=== PATIENT | male | born 2005 | race Caucasian/White ===

== ENCOUNTER 2024-03-09 23:33 | Emergency (ER) | payer OTHER, SELFPAY ==
[2024-03-09 23:35] VITALS: BP 110/83
[2024-03-09 23:50] LABS: % Basophils 0.4 % (0-2); % Eosinophils 0.2 % (0-6); % Immature Granulocytes 0.3 % (0-0.5); % Lymphocytes 12.3 % (20.5-51.1); % Monocytes 5.9 % (1.7-9.3); % Neutrophils 80.9 % (42.2-75.2); Absolute Basophils 0.1 10^3/uL (0-0.2); Absolute Immature Granulocytes 0.1 10^3/uL (0-0.05); Absolute Lymphocytes 1.9 10^3/uL (1.2-3.4); Absolute Monocytes 0.9 10^3/uL (0.1-0.6); Absolute Neutrophils 12.4 10^3/uL (1.4-6.5); Hematocrit 39.5 % (39.0-52.0); Mean Corp Hgb Conc. 35.4 g/dL (33.0-37.0); Mean Corpuscular Hgb 29.1 pg (27.0-31.0); Mean Corpuscular Volume 82.1 fL (80.0-94.0); Mean Platelet Volume 10.1 fL (7.4-10.4); Nucleated Red Blood Cells % 0 % (-); Platelet Count 242 10^3/uL (130-400); Red Blood Cell Count 4.81 10^6/uL (4.70-6.10); Red Cell Dist. Width 12.5 % (11.5-14.5); White Blood Cell Count 15.4 10^3/uL (4.8-10.8)
[2024-03-10] VITALS: BP 104/57
[2024-03-10 00:11] LABS: AST (SGOT) 29 U/L (17-59); Albumin 4.7 g/dl (3.5-5.0); Alkaline Phosphatase 58 U/L (38-126); Blood Urea Nitrogen 12 mg/dl (9-20); Calcium 9.4 mg/dl (8.4-10.2); Carbon Dioxide 19 mmol/L (22-30); Chloride 106 mmol/L (98-107); Glucose 120 mg/dl (70-99); Potassium 4.3 mmol/L (3.5-5.1); Sodium 141 mmol/L (135-145); Total Bilirubin 0.9 mg/dl (0.2-1.3); Total Protein 6.9 g/dl (6.3-8.2); eGFR > 60.00
[2024-03-10 00:27] LABS: ALT (SGPT) < 30 U/L (0-50)
--- NOTE | 2024-03-10 01:36 | ED.GENMED ---
History of Present Illness
<SID Abdullahi - Last Filed: 03/10/24 04:47>
General
Chief Complaint: Seizure
Source: patient and family (pt's grandmother )
Exam Limitations: none
Time Seen by Provider: 03/10/24 01:36
Nursing documentation reviewed up to this point in time: agreed with
History of Present Illness
History of Present Illness:
18 year old male presents for evaluation of two generalized tonic clonic seizures. 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 Pt was transported to [facility]
for evaluation, head CT and lab work were normal. Pt was discharged home, and experienced a second seizure at approximately 2230 on 03/09 per grandmother. Pt endorses associated nausea accompanying his seizures, and was given Zofran en route to the
ED which relieved his symptoms. Also currently endorses mild DALY. Pt has a history of generalized seizures and has been followed by [facility] annually since 2020. Grandmother states that pt experiences 3-4 generalized seizures
annually, most recent seizure prior to 03/09 was in December of 2023. 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 Pt has been taking Lamictal 100 mg BID since 2020. Pt took his morning dose on 03/09 but has not taken his
evening dose following his second seizure at 2230 on 03/09. Pt denies CP, SOB, vision changes, fever, chills, incontinence, and dysarthria.
Review of Systems
<SID Abdullahi - Last Filed: 03/10/24 04:47>
Review of Systems
Allergies reviewed?: Yes
Constitutional: Reports no symptoms
EENT: Reports no symptoms
Respiratory: Reports no symptoms
Cardiac: Reports no symptoms
ABD/GI: Reports no symptoms (no current nausea )
: Reports no symptoms
Musculoskeletal: Reports no symptoms
Skin: Reports no symptoms
Neurological: Reports headache (mild)
Endocrine: Reports no symptoms
Hematologic/Lymphatic: Reports no symptoms
Psychiatric: Reports no symptoms
Phy Exam
<SID Abdullahi - Last Filed: 03/10/24 04:47>
General Physical Exam
General Presentation: well appearing
General age: appears stated age
General Skin: warm
General Habitus: normal
General Mental: alert
General Hydration: appears well hydrated
Eye Exam
Eye Exam: PERRL and EOMI
Cardiovascular Exam
Cardiovascular Exam: regular rate/rhythm and no murmur
Pulmonary Exam
Pulmonary Exam: lungs clear and no respiratory distress
Neurological Exam
Neurological Exam: alert and oriented x3
Course
<SID Abdullahi - Last Filed: 03/10/24 04:47>
Orders/Labs/Results
Orders:
Orders
03/09/24 23:41
CMP [Comprehensive Metabolic Panel] Urgent
Complete Blood Count/With Diff Urgent
03/10/24 01:58
Add On- LAB Urgent
Tests Added?: Lamictal level
Lamotrigine [Lamictal] 100 mg PO NOW STA
03/10/24 02:18
Lamotrigine (Lamictal) [S] Routine
Abnormal Lab Results
03/09/24
23:41
WBC 15.4 H 10^3/uL
(4.8-10.8)
Abs Immat Gran (auto) 0.1 H 10^3/uL
(0-0.05)
Absolute Neuts (auto) 12.4 H 10^3/uL
(1.4-6.5)
Absolute Monos (auto) 0.9 H 10^3/uL
(0.1-0.6)
Neutrophils % 80.9 H %
(42.2-75.2)
Lymphocytes % 12.3 L %
(20.5-51.1)
Carbon Dioxide 19 L mmol/L
(22-30)
Glucose 120 H mg/dl
(70-99)
03/09/24 23:41
03/09/24 23:41
Vital Signs
Initial and Last Documented VS:
Initial Vital Signs
Temp Pulse Resp BP Pulse Ox
98.1 F 101 19 110/83 96
03/09/24 23:35 03/09/24 23:35 03/09/24 23:35 03/09/24 23:35 03/09/24 23:35
Last Documented Vital Signs
Temp Pulse Resp BP Pulse Ox
98.1 F 55 19 104/57 100
03/09/24 23:35 03/10/24 04:45 03/09/24 23:35 03/10/24 00:00 03/10/24 02:15
<Heather Brock, DO - Last Filed: 03/10/24 06:08>
Orders/Labs/Results
Orders:
Orders
03/09/24 23:41
CMP [Comprehensive Metabolic Panel] Urgent
Complete Blood Count/With Diff Urgent
03/10/24 01:58
Add On- LAB Urgent
Tests Added?: Lamictal level
Lamotrigine [Lamictal] 100 mg PO NOW STA
03/10/24 02:18
Lamotrigine (Lamictal) [S] Routine
Abnormal Lab Results
03/09/24
23:41
WBC 15.4 H 10^3/uL
(4.8-10.8)
Abs Immat Gran (auto) 0.1 H 10^3/uL
(0-0.05)
Absolute Neuts (auto) 12.4 H 10^3/uL
(1.4-6.5)
Absolute Monos (auto) 0.9 H 10^3/uL
(0.1-0.6)
Neutrophils % 80.9 H %
(42.2-75.2)
Lymphocytes % 12.3 L %
(20.5-51.1)
Carbon Dioxide 19 L mmol/L
(22-30)
Glucose 120 H mg/dl
(70-99)
03/09/24 23:41
03/09/24 23:41
Vital Signs
Initial and Last Documented VS:
Initial Vital Signs
Temp Pulse Resp BP Pulse Ox
98.1 F 101 19 110/83 96
03/09/24 23:35 03/09/24 23:35 03/09/24 23:35 03/09/24 23:35 03/09/24 23:35
Last Documented Vital Signs
Temp Pulse Resp BP Pulse Ox
98.1 F 55 19 104/57 100
03/09/24 23:35 03/10/24 04:45 03/09/24 23:35 03/10/24 00:00 03/10/24 02:15
<SID Abdullahi - Last Filed: 03/10/24 04:47>
MDM/Problems Addressed
Differential Diagnosis Includes:
generalized seizure
MDM/Problems Addressed:
Lamotrigine [Lamictal] 100 mg PO
<SID Abdullahi - Last Filed: 03/10/24 04:47>
*Critical Care Note
Total Time (30-74mins, 75-104mins- exclusive of procedures): Not Applicable
<Heather Brock DO - Last Filed: 03/10/24 06:08>
*Pulse Oximetry
Patient hypoxic: no
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
Rate: normal
Interpretation: normal
Rhythm: sinus
ED Attending Note
<SID Abdullahi - Last Filed: 03/10/24 04:47>
-
Portions of this chart may have been created with voice recognition software.� Occasional wrong word or��sound alike� substitutions may have occurred due to the inherent limitations of voice recognition software.
<Heather Brock DO - Last Filed: 03/10/24 06:08>
ED Attending Note
Patient seen and examined by attending physician: Yes
I performed a history and physical exam of patient and discussed management with resident, I reviewed resident's note and agree with documented findings and plan of care.: Yes
ED Attending Note:
This is a 18-year-old male who resides at home with his grandmother. He has history of epilepsy with initial seizure at age 15, initially thought to be related to Zoloft which was discontinued at that time. He then suffered a grand mal seizure
October 2020, evaluated in this ED at that time. Unremarkable evaluation including CT of the head. He has since followed up with neurology, Dr. Archer and has been maintained on antiepileptics since that time. Initial antiepileptic apparently
caused fatigue and patient was noncompliant with that medicine, he has since transition to Lamictal 100 mg twice daily and reportedly has been compliant with this. He generally suffers a breakthrough seizure perhaps 3-4 times per year with last
seizure December 2023.
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
Upon returning home while in the bathroom he suffered another seizure around 10:30 PM. Seizure lasted approximately 2 minutes. He denies biting his tongue. He was not incontinent of bowel nor bladder. Mildly drowsy post seizure and admits to
mild nausea but has had no vomiting. Also admits to a headache. Similar headache and nausea noted with previous seizures.
He denies neck nor back pain, denies chest or abdominal pain.
He has not taken his evening dose of Lamictal as yet.
Grandmother is at bedside and she believes that he has been compliant with medications but not completely sure as patient is independent with his medications.
His last visit with neurologist, Dr. Archer was August of this year.
GENERAL: 18-year-old male appears his stated age. Mildly drowsy and marginally cooperative with exam, admits that he would rather just go back to sleep. Currently offers no complaints. The head is normocephalic, atraumatic.
EYE: pupils equal and reactive. anicteric
NECK: Supple, nontender, no meningismus, no significant adenopathy.
ENT: posterior pharynx is clear, mild ecchymosis mid aspect of the upper lip. Tongue is midline without evidence of abrasion. Oral mucosa is moist. TM clear b/l, nares patent.
CARDIAC: Regular rate and rhythm. no murmur.
LUNGS: Clear breath sounds bilaterally, no acute respiratory distress, no wheezes/rales/rhonchi
ABDOMEN: Soft, nondistended, without focal tenderness, no r/g, normoactive BS.
NEUROLOGICAL: Minimally drowsy, oriented x 3, no focal neuro deficits.
SKIN: Warm and dry, normal color, skin intact. No rash.
MUSCULOSKELETAL: No C/C/E. peripheral pulses are full and equal b/l. No palpable tenderness.
PSYCH: Marginally cooperative with exam.
18-year-old with history of seizure disorder has suffered 2 breakthrough seizures today. Both of which reportedly resolved within 1 to 2 minutes. No history of prolonged postictal state.
Reportedly compliant with twice daily Lamictal however has not had his evening dose of Lamictal which we will provide now.
Has not had Lamictal level in quite some time thus we will add to blood in the lab. I did notify patient and grandmother that this is a send out test and will be resulted in several days to perhaps a week.
It is reassuring that seizures have been brief in nature without associated neurologic deficits.
Will continue to observe in the ED and if no recurrent seizure we will plan to discharge from ED this a.m. with plan for prompt follow-up with neurology.
Will attempt to contact Dr. Archer via [place] text later this morning.
03/10/2024 0604 AM
patient has remained seizure-free since arrival to the ED.
He is awake and alert, offers no complaints other than requesting to be discharged to home.
I have placed a [place] text to Dr. Archer. No return responses yet but have recommended that patient call Dr. Archer's office today for follow-up appointment.
Lamictal level is pending.
Recommend he continue his Lamictal twice daily without skipping doses.
Discharge Plan
Departure
Patient Disposition: Home (Routine Discharge)
Date of Disposition: 03/10/24
Time of Disposition: 06:03
Patient with high blood pressure during this ER visit?: No
Condition: Good
Discharge Problem:
Breakthrough seizure
Instructions: Epilepsy in adults
Prescriptions:
No Action
multivitamin with folic acid [Tab-A-Floresita] 1 TABLET tablet
1 tab PO DAILY
Referrals:
Chirag Pope DO [Family Provider] -
Blaze Archer MD [Active] - Next open appointment
Interventions
Interventions:
*Risk Screen - Suicide Last Done: 03/09/24 23:35
*General Assessment Last Done: 03/09/24 23:35
*Neglect/Abuse Screening Last Done: 03/09/24 23:35
ED- Fall Risk Assessment Last Done: 03/09/24 23:43
*ED COVID-19 Vaccine History Last Done: 03/09/24 23:35
ED- Cardiac Assessment Last Done: 03/09/24 23:43
ED- Neurological Assessment Last Done: 03/09/24 23:43
ED- Pulmonary Assessment Last Done: 03/09/24 23:43
Discharge Date and Time
Print Language: MOSOTHO
[2024-03-10] MEDS: LAMICTAL 100 MG PO (02:21)
[2024-03-10 06:07] VITALS: BP 104/71
[2024-03-11 23:41] LABS: Lamotrigine (Lamictal) 1.3 ug/mL (3.0-15.0)
== END 2024-03-10 06:12 | disposition home or self-care (01) ==
LOC: EMR 23:33
PROVIDERS: EMERGENCY PHYSICIAN Emergency Medicine; FAMILY PHYSICIAN Family Medicine
DX: G40.409 Other generalized epilepsy and epileptic syndromes, not intractable, without status epilepticus (principal); R11.0 Nausea; R51.9 Headache, unspecified; J45.909 Unspecified asthma, uncomplicated
CPT/HCPCS: 99284; 80053; 80175; 85025